=== PATIENT | female | born 1975 | race Caucasian/White ===

== ENCOUNTER → 2016-10-08 | Outpatient (CLI) | payer OTHER ==
[~2016-10-08] MED LIST: GLUCOPHAGE500 MG PO; PRILOSEC OTC20 MG PO; SYNTHROID150 MCG PO; TOPROL XL 50 MG50 MG PO; VITAMIN D35000 UNI1 PO
[2016-10-08 14:00] LABS: HEMOGLOBIN 13.2 gm/dl (12.3-15.3); RED BLOOD COUNT 4.55 M/UL (4.00-5.10)
[2016-10-08 14:22] LABS: BUN/CREATININE RATIO 30 (0-10)
== END ==
LOC: LAB 13:26
PROVIDERS: Internal Medicine Cardiovascular Disease
DX: I47.1 Supraventricular tachycardia (principal); R00.2 Palpitations
CPT/HCPCS: 36415; 71020; 80048; 85025